=== PATIENT | female | born 1950 | race Hispanic/Latino ===

== ENCOUNTER 2018-01-23 06:33 | Observation (INO) | payer OTHER ==
[2018-01-22 13:09] VITALS: BP 118/68
[2018-01-22 13:21] LABS: BASOPHILS % (AUTO) 0.4 % (0.0-5.0); EOSINOPHILS % (AUTO) 1.1 % (0.0-8.0); HEMATOCRIT 40.7 % (36-48); LYMPHOCYTES % (AUTO) 17.8 % (21.0-51.0); MEAN CORPUSCULAR HEMOGLOBIN 30.7 pg (27.0-33.0); MEAN CORPUSCULAR HGB CONC 33.5 g/dL (32.0-36.0); MEAN CORPUSCULAR VOLUME 91.6 fL (79-99); MONOCYTES % (AUTO) 7.5 % (3.0-13.0); NEUTROPHILS % (AUTO) 73.2 % (40.0-77.0); PLATELET COUNT (AUTO) 272 K/uL (130-400); RED BLOOD CELL COUNT(AUTO) 4.44 MIL/uL (4.00-5.50); RED CELL DISTRIBUTION WIDTH 13.6 % (11.0-15.5); WHITE BLOOD COUNT (AUTO) 9.7 K/uL (4.8-10.8)
[2018-01-22 13:33] LABS: CREATININE 0.7 mg/dL (0.5-1.5); POTASSIUM 3.4 mmol/L (3.5-5.1)
[~2018-01-23] VITALS: Ht 162.6 cm; Wt 59.7 kg
[2018-01-23] VITALS (20 sets, daily range): BP systolic 113–151; BP diastolic 70–89
[~2018-01-23 06:33] MED LIST: AEC81 PO; ATOR20TA65 PO; CALC-190 PO; FLUT9.9S NS; LACTATED RINGERS 1000ML 1,000 ML IV SCH; LORA10TA7 PO; METF500T6 PO; MULT1TAB70 PO
[2018-01-23] MEDS: LEVOFLOXACIN 500 MG/D5W 100 ML 100 ML IV SCH ×2 (07:00→07:53)
[2018-01-23] MEDS: CLINDAMYCIN 600 MG/D5% WATER 50 ML IV SCH ×2 (07:00→07:35)
[2018-01-23] MEDS ORDERED: SODIUM CHLORIDE 0.9% 1000ML 1,000 ML IV ONE (07:05)
[2018-01-23] MEDS ORDERED: MIDAZOLAM HCL 1 MG/ML 2ML VIAL ONE (07:32)
[2018-01-23] MEDS ORDERED: FENTANYL CITRATE PF 50 MCG/1 ML 2ML VIAL ONE ×2 (07:33→08:15)
[2018-01-23] MEDS ORDERED: PROPOFOL 10 MG/ML 20ML VIAL IV ONE (07:33)
[2018-01-23] MEDS ORDERED: ROCURONIUM BROMIDE 10MG/1ML 5ML VL ONE (07:38)
[2018-01-23] MEDS ORDERED: LIDOCAINE PF 2% 5ML ABBOJECT ONE (09:07)
[2018-01-23] MEDS ORDERED: NEOSTIGMINE 5MG/5ML SYR IV ONE (09:07)
[2018-01-23] MEDS ORDERED: ONDANSETRON HCL 4 MG/2 ML VIAL ONE (09:07)
[2018-01-23] MEDS ORDERED: GLYCOPYRROLATE 0.2 MG/ML 5 ML VIAL ONE (09:07)
[2018-01-23] MEDS ORDERED: SUCCINYLCHOLINE 200MG/10ML SYR ONE (09:07)
[2018-01-23] MEDS ORDERED: OCTYL 2-CYANOACRYLATE 1 EACH TP ONE (09:10)
[2018-01-23] MEDS ORDERED: KETOROLAC TROMETHAMINE 30MG/ML ONE (09:43)
[2018-01-23] MEDS ORDERED: MORPHINE SULFATE 4 MG/1ML SYG ONE (09:44)
[2018-01-23] MEDS ORDERED: MEPERIDINE-PF 25 MG/ML SYG ONE (10:02)
[2018-01-23] MEDS ORDERED: DOCUSATE SODIUM 100 MG CAP PO PRN (11:00)
[2018-01-23] MEDS ORDERED: ACETAMINOPHEN-CODEINE 300/30MG TAB PO PRN (11:00)
[2018-01-23] MEDS ORDERED: PROMETHAZINE HCL 25 MG/ML 1ML AMPULE IM PRN ×2 (11:00)
[2018-01-23] MEDS ORDERED: SIMETHICONE 80 MG TAB.CHEW PO PRN (11:00)
[2018-01-23] MEDS ORDERED: MEPERIDINE-PF 75 MG/ML SYG IM PRN (11:00)
[2018-01-23] MEDS ORDERED: IBUPROFEN 600 MG TABLET PO PRN (11:00)
[2018-01-23] MEDS: SODIUM CHLORIDE 0.9% 1000ML 1,000 ML IV SCH ×2 (11:37→18:19)
[2018-01-23] MEDS ORDERED: INSULIN HUMULIN R 100 UNIT/ML 3ML ONE (11:45)
[2018-01-23] MEDS: INSULIN HUMULIN R 100 UNIT/ML 3ML SQ SCH ×3 (11:55→21:00)
[2018-01-23] MEDS ORDERED: PROMETHAZINE HCL 25 MG/ML 1ML AMPULE IM ONE (13:34)
[2018-01-23] MEDS ORDERED: MEPERIDINE-PF 75 MG/ML SYG ONE (13:34)
[2018-01-23] MEDS ORDERED: ACETAMINOPHEN-CODEINE 300/30MG TAB ONE ×2 (23:26)
[2018-01-24 02:50] VITALS: BP 131/64
[2018-01-24 05:32] LABS: HEMATOCRIT 36.2 % (36-48); MEAN CORPUSCULAR HEMOGLOBIN 31.7 pg (27.0-33.0); MEAN CORPUSCULAR HGB CONC 34.7 g/dL (32.0-36.0); MEAN CORPUSCULAR VOLUME 91.4 fL (79-99); PLATELET COUNT (AUTO) 250 K/uL (130-400); RED BLOOD CELL COUNT(AUTO) 3.96 MIL/uL (4.00-5.50); RED CELL DISTRIBUTION WIDTH 13.1 % (11.0-15.5); WHITE BLOOD COUNT (AUTO) 9.7 K/uL (4.8-10.8)
[2018-01-24] MEDS ORDERED: ACETAMINOPHEN-CODEINE 300/30MG TAB PO PRN (07:30)
[2018-01-24] MEDS ORDERED: HYDROCODONE/ACETAMINOPHEN 5/325 MG TAB PO PRN (07:30)
[2018-01-24] MEDS ORDERED: BISACODYL 10 MG SUPP.RECT RC PRN (07:30)
[2018-01-24] MEDS: INSULIN HUMULIN R 100 UNIT/ML 3ML SQ SCH ×4 (07:30→21:00)
[2018-01-24 07:55] VITALS: BP 122/73
[2018-01-24] MEDS: IBUPROFEN 800 MG TAB PO PRN ×2 (09:08→16:18)
[2018-01-24] MEDS: SIMETHICONE 80 MG TAB.CHEW PO PRN ×3 (09:09→21:31)
[2018-01-24 11:18] VITALS: BP 134/80
[2018-01-24 16:06] VITALS: BP 121/79
[2018-01-24] MEDS: METFORMIN HCL 500 MG TABLET PO SCH (17:49)
[2018-01-24 20:20] VITALS: BP 120/73
[2018-01-24] MEDS ORDERED: ATORVASTATIN CALCIUM 20 MG TABLET PO SCH (21:00)
[2018-01-24] MEDS: DOCUSATE SODIUM 100 MG CAP PO PRN (21:31)
[2018-01-24] MEDS ORDERED: ATORVASTATIN CALCIUM 10 MG TABLET ONE (22:04)
[2018-01-24 23:15] VITALS: BP 99/54
[2018-01-25 03:10] VITALS: BP 92/47
[2018-01-25] MEDS ORDERED: BISACODYL 10 MG SUPP.RECT RC ONE (03:18)
[2018-01-25] MEDS: IBUPROFEN 800 MG TAB PO PRN ×2 (03:20→08:56)
[2018-01-25] MEDS: BISACODYL 10 MG SUPP.RECT RC PRN ×2 (03:20→03:23)
[2018-01-25 07:45] VITALS: BP 90/57
[2018-01-25] MEDS: METFORMIN HCL 500 MG TABLET PO SCH (07:46)
[2018-01-25] MEDS: SIMETHICONE 80 MG TAB.CHEW PO PRN ×2 (08:55→13:50)
[2018-01-25] MEDS: DOCUSATE SODIUM 100 MG CAP PO PRN (08:55)
[2018-01-25 11:19] VITALS: BP 117/69
== END 2018-01-25 13:55 | disposition home or self-care (01) ==
LOC: DAH 06:33 → WSH 10:40 → DAH 10:41 → WSH 11:34
PROVIDERS: ADMIT Obstetrics & Gynecology; ATTEND Obstetrics & Gynecology
DX: N81.3 Complete uterovaginal prolapse (principal)
CPT/HCPCS: 36415 ×2; 58262; 80048; 82948 ×11; 85025; 85027; 86850; 86900; 86901; 88304; 88305; 88307; 93005; 96372; A4344; A4351; A4354; A4606; C1771; G0378 ×50; J0330; J1815; J1885; J1956; J2001; J2175 ×2; J2250; J2270; J2405; J2550; J2704; J2710; J3010 ×2; J3490 ×3; J7030 ×2; J7120